=== PATIENT | female | born 1950 | race African-American/Black ===

== ENCOUNTER 2018-05-02 19:13 | Inpatient (IN) | payer MEDICARE, MEDICAID ==
[~2018-05-02] VITALS: Ht 165.1 cm; Wt 64.4 kg
[~2018-05-02 19:13] MED LIST: AMLO10TA4 PO; ASPI-1159 PO; ATOR20TA65 PO; CALC-700 PO; CARV6.2548 PO; Folic Acid PO; GABA800T97 PO; HYDR-519 PO; L25 PO; LOSA100T14 PO; METH-612 PO; METO-396 PO; Multivitamins,Ther W-Minerals PO; NITR0.4T49 SL; TIOT18CA3 IH; TRAM50TA PO; Thiamine Hcl PO
[2018-05-02] MEDS ORDERED: ALBUTEROL (0.083%) 2.5MG/3ML NEB HHN STA (20:41)
[2018-05-02] MEDS ORDERED: METHYLPREDNISOLONE SOD SUCC 125 MG/2 ML VIAL IV STA (20:41)
[2018-05-02] MEDS ORDERED: IPRATROPIUM BROMIDE (0.02%) 0.5MG/2.5ML NEB HHN STA (20:41)
[2018-05-02 22:39] LABS: BASOPHILS % 0.4 % (0.0-2.0); EOSINOPHILS % 0.1 % (0.0-5.0); LYMPHOCYTES % 20.1 % (20.0-50.0); MEAN CORPUSCULAR HEMOGLOBIN 31.5 pg (28.0-32.0); MEAN CORPUSCULAR VOLUME 97.4 fL (81.0-99.0); MEAN PLATELET VOLUME 9.2 fl (7.4-10.4); MONOCYTES % 5.5 % (2.0-8.0); NEUTROPHILS % 73.9 % (40.0-76.0); PLATELET 179 x1000/uL (130-400); RED BLOOD CELL COUNT 3.19 mill/uL (4.2-5.4); RED CELL DISTRIBUTION WIDTH 17.6 % (11.6-14.6)
[2018-05-02 22:44] LABS: CHLORIDE 108 mEq/L (98-107)
[2018-05-02 22:48] LABS: ETHANOL BLOOD 159 mg/dL
[2018-05-02 22:50] LABS: D-DIMER 2.4 mg/L FEU (<0.50)
[2018-05-02] MEDS ORDERED: NITROGLYCERIN OINT 1GM/INCH UDPKT TD ONE (23:30)
[2018-05-02] MEDS ORDERED: FUROSEMIDE 40MG/4ML VIAL IV ONE (23:30)
[2018-05-03 01:01] LABS: *AMPHETAMINES SCREEN URINE NEGATIVE (NEGATIVE); *BARBITURATES SCREEN URINE NEGATIVE (NEGATIVE); *BENZODIAZEPINES SCREEN URINE NEGATIVE (NEGATIVE); *COCAINE SCREEN URINE NEGATIVE (NEGATIVE); CANNABINOID URINE SCREEN NEGATIVE (NEGATIVE); METHADONE URINE SCREEN NEGATIVE (NEGATIVE); OPIATES URINE SCREEN NEGATIVE (NEGATIVE); PHENCYCLIDINE URINE SCREEN NEGATIVE (NEGATIVE)
[2018-05-03] MEDS ORDERED: IOHEXOL-350 100 ML BOTTLE ONE (01:47)
[2018-05-03] MEDS ORDERED: CLONIDINE 0.1MG TABLET PO PRN (08:00)
[2018-05-03] MEDS ORDERED: FOLIC ACID 1 MG, THIAMINE HCL 100 MG, MVI, ADULT NO.1 10 ML in DEXTROSE 5% WATER 1,000 ML IV ONE ×4 (08:00)
[2018-05-03] MEDS ORDERED: ONDANSETRON HCL 4MG/2ML INJ IV PRN (08:00)
[2018-05-03 08:07] LABS: HEMATOCRIT 34.2 % (36.0-48.0); HEMOGLOBIN 11.3 g/dL (12.0-16.0)
[2018-05-03] MEDS ORDERED: FOLIC ACID 1 MG,THIAMINE HCL 100 MG,MVI, ADULT NO.1 10 ML in DEXTROSE 5% IV ONE ×4 (09:00)
[2018-05-03] MEDS ORDERED: LOSARTAN POTASSIUM 50 MG TABLET PO SCH (09:00)
[2018-05-03] MEDS: AMLODIPINE 5MG TABLET PO SCH ×2 (09:32→21:31)
[2018-05-03] MEDS: METHYLPREDNISOLONE SOD SUCC 40 MG/ML VIAL IV SCH ×2 (09:32→17:25)
[2018-05-03] MEDS ORDERED: LORAZEPAM 2MG/ML CPJ IV PRN (14:45)
[2018-05-03] MEDS ORDERED: IPRATROPIUM/ALBUTEROL 0.5-3(2.5)MG/3ML NEB HHN PRN (14:45)
[2018-05-03] MEDS ORDERED: HYDRALAZINE HCL 50MG TABLET PO NR (21:18)
[2018-05-03 21:35] VITALS: BP 159/79
[2018-05-03 22:00] VITALS: BP 153/79
[2018-05-03] MEDS ORDERED: HYDRALAZINE HCL 50MG TABLET PO SCH (22:00)
[2018-05-03] MEDS: NICOTINE 14MG PATCH TD SCH (23:21)
[2018-05-04] VITALS: BP 136/77
[2018-05-04] MEDS ORDERED: FOLI-43 PO ×2 (00:07)
[2018-05-04] MEDS ORDERED: THIA100T13 PO ×2 (00:07)
[2018-05-04] MEDS ORDERED: [UNRECOGNIZED DRUG - CODE] PO (00:10)
[2018-05-04] MEDS: BUDESONIDE 0.5MG/2ML NEB HHN SCH ×3 (00:42→21:21)
[2018-05-04] MEDS: IPRATROPIUM/ALBUTEROL 0.5-3(2.5)MG/3ML NEB HHN SCH ×8 (00:42→21:25)
[2018-05-04] MEDS: METHYLPREDNISOLONE SOD SUCC 40 MG/ML VIAL IV SCH ×3 (03:10→21:51)
[2018-05-04 04:00] VITALS: BP 113/76
[2018-05-04 06:26] LABS: HEMATOCRIT. 33.3 % (36.0-48.0); HEMOGLOBIN. 10.9 g/dL (12.0-16.0); MEAN CORPUSCULAR HEMOGLOBIN 31.4 pg (28.0-32.0); MEAN CORPUSCULAR VOLUME 95.7 fL (81.0-99.0); MEAN PLATELET VOLUME 9.9 fl (7.4-10.4); PLATELET 220 x1000/uL (130-400); RED BLOOD CELL COUNT 3.47 mill/uL (4.2-5.4); RED CELL DISTRIBUTION WIDTH 17.8 % (11.6-14.6)
[2018-05-04 07:22] LABS: CHLORIDE 97 mEq/L (98-107)
[2018-05-04 08:00] VITALS: BP 140/73
[2018-05-04] MEDS: PANTOPRAZOLE SODIUM 40 MG/VIAL IV SCH ×2 (09:50→21:51)
[2018-05-04] MEDS: MULTIVITAMINS,THER W-MINERALS TABLET PO SCH (09:51)
[2018-05-04] MEDS: THIAMINE HCL 100MG TABLET PO SCH (09:51)
[2018-05-04] MEDS: NICOTINE 14MG PATCH TD SCH (09:51)
[2018-05-04] MEDS: FOLIC ACID 1MG TABLET PO SCH (09:52)
[2018-05-04] MEDS: AMLODIPINE 5MG TABLET PO SCH ×2 (09:52→21:50)
[2018-05-04] MEDS: HYDRALAZINE HCL 50MG TABLET PO SCH ×2 (09:53→21:55)
[2018-05-04] MEDS: ACETAMINOPHEN 325MG TABLET PO PRN (09:54)
[2018-05-04] MEDS: LOSARTAN POTASSIUM 50 MG TABLET PO SCH ×2 (09:55→21:51)
[2018-05-04 12:00] VITALS: BP 124/66
[2018-05-04 12:17] LABS: PLATELET ESTIMATE NORMAL
[2018-05-04] MEDS ORDERED: POTASSIUM CHLORIDE 20MEQ TABLET SR PO SCH (12:45)
[2018-05-04 16:00] VITALS: BP 130/70
[2018-05-04 20:00] VITALS: BP 140/65
[2018-05-04] MEDS: GUAIFENESIN 600MG ER TABLET PO SCH (21:51)
[2018-05-05] VITALS (7 sets, daily range): BP systolic 118–150; BP diastolic 56–78
[2018-05-05] MEDS: IPRATROPIUM/ALBUTEROL 0.5-3(2.5)MG/3ML NEB HHN SCH ×5 (05:16→21:19)
[2018-05-05] MEDS: ACETAMINOPHEN 325MG TABLET PO PRN (06:31)
[2018-05-05 06:59] LABS: CHLORIDE 100 mEq/L (98-107)
[2018-05-05 07:38] LABS: BASOPHILS % 0.2 % (0.0-2.0); HEMATOCRIT. 33.8 % (36.0-48.0); HEMOGLOBIN. 10.9 g/dL (12.0-16.0); LYMPHOCYTES % 7.4 % (20.0-50.0); MEAN CORPUSCULAR HEMOGLOBIN 31.1 pg (28.0-32.0); MEAN CORPUSCULAR VOLUME 96.3 fL (81.0-99.0); MONOCYTES % 4.1 % (2.0-8.0); NEUTROPHILS % 88.3 % (40.0-76.0); PLATELET 238 x1000/uL (130-400); RED BLOOD CELL COUNT 3.52 mill/uL (4.2-5.4); RED CELL DISTRIBUTION WIDTH 17.8 % (11.6-14.6)
[2018-05-05] MEDS: IPRATROPIUM BROMIDE (0.02%) 0.5MG/2.5ML NEB HHN SCH (08:00)
[2018-05-05] MEDS ORDERED: POTASSIUM CHLORIDE 20MEQ TABLET SR PO NR (08:30)
[2018-05-05] MEDS ORDERED: DOCUSATE SODIUM 100MG CAPSULE PO SCH (09:00)
[2018-05-05] MEDS: LOSARTAN POTASSIUM 50 MG TABLET PO SCH ×2 (09:05→20:55)
[2018-05-05] MEDS: MULTIVITAMINS,THER W-MINERALS TABLET PO SCH (09:05)
[2018-05-05] MEDS: PANTOPRAZOLE SODIUM 40 MG/VIAL IV SCH ×2 (09:05→20:54)
[2018-05-05] MEDS: AMLODIPINE 5MG TABLET PO SCH ×2 (09:05→20:55)
[2018-05-05] MEDS: GUAIFENESIN 600MG ER TABLET PO SCH ×2 (09:05→20:55)
[2018-05-05] MEDS: HYDRALAZINE HCL 50MG TABLET PO SCH ×2 (09:06→20:55)
[2018-05-05] MEDS: NICOTINE 14MG PATCH TD SCH (09:07)
[2018-05-05] MEDS: FERROUS SULFATE 325MG TABLET PO SCH ×3 (09:07→18:48)
[2018-05-05] MEDS: METHYLPREDNISOLONE SOD SUCC 40 MG/ML VIAL IV SCH ×2 (09:07→20:54)
[2018-05-05] MEDS: FOLIC ACID 1MG TABLET PO SCH (09:07)
[2018-05-05] MEDS: BUDESONIDE 0.5MG/2ML NEB HHN SCH ×2 (09:10→21:20)
[2018-05-05] MEDS: THIAMINE HCL 100MG TABLET PO SCH (09:39)
[2018-05-06] VITALS (9 sets, daily range): BP systolic 110–135; BP diastolic 64–83
[2018-05-06] MEDS: IPRATROPIUM/ALBUTEROL 0.5-3(2.5)MG/3ML NEB HHN SCH ×3 (01:23→07:44)
[2018-05-06 07:33] LABS: CHLORIDE 105 mEq/L (98-107)
[2018-05-06 07:37] LABS: HEMOGLOBIN. 10.7 g/dL (12.0-16.0); MEAN CORPUSCULAR HEMOGLOBIN 30.4 pg (28.0-32.0); MEAN CORPUSCULAR VOLUME 97.1 fL (81.0-99.0); MEAN PLATELET VOLUME 9.5 fl (7.4-10.4); PLATELET 232 x1000/uL (130-400); RED BLOOD CELL COUNT 3.51 mill/uL (4.2-5.4); RED CELL DISTRIBUTION WIDTH 17.9 % (11.6-14.6)
[2018-05-06 09:06] LABS: SACCHAROMYCES CEREVISIAE IGM <20.0 Units (0.0-24.9)
[2018-05-06] MEDS: THIAMINE HCL 100MG TABLET PO SCH (09:12)
[2018-05-06] MEDS: HYDRALAZINE HCL 50MG TABLET PO SCH (09:12)
[2018-05-06] MEDS: ACETAMINOPHEN 325MG TABLET PO PRN (09:12)
[2018-05-06] MEDS: FERROUS SULFATE 325MG TABLET PO SCH ×2 (09:13→13:38)
[2018-05-06] MEDS: LOSARTAN POTASSIUM 50 MG TABLET PO SCH (09:13)
[2018-05-06] MEDS: MULTIVITAMINS,THER W-MINERALS TABLET PO SCH (09:13)
[2018-05-06] MEDS: FOLIC ACID 1MG TABLET PO SCH (09:13)
[2018-05-06] MEDS: GUAIFENESIN 600MG ER TABLET PO SCH (09:13)
[2018-05-06] MEDS: NICOTINE 14MG PATCH TD SCH (09:14)
[2018-05-06] MEDS: PANTOPRAZOLE SODIUM 40 MG/VIAL IV SCH (09:14)
[2018-05-06] MEDS: AMLODIPINE 5MG TABLET PO SCH (09:14)
[2018-05-06] MEDS: METHYLPREDNISOLONE SOD SUCC 40 MG/ML VIAL IV SCH (09:14)
[2018-05-06] MEDS ORDERED: POTASSIUM CHLORIDE 20MEQ TABLET SR PO SCH (10:00)
[2018-05-06] MEDS ORDERED: LEVOFLOXACIN 500MG TABLET PO SCH (10:30)
[2018-05-06] MEDS ORDERED: LIDOCAINE HCL 1% 20ML VIAL (Pyxis) INJ ONE (11:23)
[2018-05-06] MEDS ORDERED: SODIUM BICARBONATE 4% (2.4MEQ) 5ML VIAL IV ONE (11:23)
[2018-05-06] MEDS: IPRATROPIUM BROMIDE (0.02%) 0.5MG/2.5ML NEB HHN SCH (11:31)
[2018-05-06] MEDS: BUDESONIDE 0.5MG/2ML NEB HHN SCH (11:31)
[2018-05-06] MEDS ORDERED: METRONIDAZOLE 500 MG PREMIX 100 ML IV SCH (12:00)
[2018-05-06 12:31] LABS: HEPATITIS B SURFACE ANTIGEN NEGATIVE
[2018-05-06] MEDS ORDERED: FENTANYL CITRATE/PF 50MCG/ML 2ML VIAL ONE (12:32)
[2018-05-06 13:00] LABS: HEPATITIS A AB IGM NEGATIVE (NEGATIVE)
[2018-05-06 13:48] LABS: PLATELET ESTIMATE NORMAL
[2018-05-06] MEDS ORDERED: CHLORDIAZEPOXIDE 5 MG CAPSULE PO SCH (14:00)
[2018-05-06 15:06] LABS: ATYPICAL pANCA <1:20 titer (Neg:<1:20)
[2018-05-06] MEDS ORDERED: PREDNISONE 20MG TABLET PO SCH (18:10)
[2018-05-07 08:14] LABS: HIV SCREEN 4G Non Reactive (Non Reactive)
[2018-05-07 09:06] LABS: SACCHAROMYCES CEREVISIAE IGG <20.0 Units (0.0-24.9)
== END 2018-05-06 19:22 | disposition home or self-care (01) | DRG 871 ==
LOC: ER 19:13 → 7WST 05-03 00:40 → ENRESERV 05-03 20:41
PROVIDERS: ADMIT Internal Medicine; ATTEND Internal Medicine
DX: A41.9 Sepsis, unspecified organism (principal); J96.00 Acute respiratory failure, unspecified whether with hypoxia or hypercapnia; J18.9 Pneumonia, unspecified organism; E44.1 Mild protein-calorie malnutrition; E87.0 Hyperosmolality and hypernatremia; I50.32 Chronic diastolic (congestive) heart failure; J44.1 Chronic obstructive pulmonary disease with (acute) exacerbation; J44.0 Chronic obstructive pulmonary disease with (acute) lower respiratory infection; E11.9 Type 2 diabetes mellitus without complications; D12.5 Benign neoplasm of sigmoid colon; D64.9 Anemia, unspecified; E27.9 Disorder of adrenal gland, unspecified; E87.8 Other disorders of electrolyte and fluid balance, not elsewhere classified; I27.20 Pulmonary hypertension, unspecified; K52.9 Noninfective gastroenteritis and colitis, unspecified; K57.30 Diverticulosis of large intestine without perforation or abscess without bleeding; K76.0 Fatty (change of) liver, not elsewhere classified; M19.90 Unspecified osteoarthritis, unspecified site; Y90.6 Blood alcohol level of 120-199 mg/100 ml; Z99.81 Dependence on supplemental oxygen; F17.210 Nicotine dependence, cigarettes, uncomplicated; F32.9 Major depressive disorder, single episode, unspecified; I11.0 Hypertensive heart disease with heart failure; K70.9 Alcoholic liver disease, unspecified; R29.6 Repeated falls; F10.10 Alcohol abuse, uncomplicated; K29.20 Alcoholic gastritis without bleeding; Z79.01 Long term (current) use of anticoagulants; Z86.010 Personal history of colon polyps; Z86.711 Personal history of pulmonary embolism; Z90.710 Acquired absence of both cervix and uterus; Z88.0 Allergy status to penicillin; Z71.6 Tobacco abuse counseling; Z68.23 Body mass index [BMI] 23.0-23.9, adult
CPT/HCPCS: 32405; 36415; 71045; 71275; 76700; 77012; 80048; 80076; 80305; 80320; 82270; 82728; 82977; 83540; 83550; 83735; 83880; 84145; 84484; 85014; 85018; 85379; 86256; 86671; 86705; 86709; 86803; 86850; 86900; 87015; 87045; 87340; 87389; 87427; 87449; 87493; 93005; 93970; 96365; 96366; 96375; 97163; 99284; 99285; C9113; J1940; J2060; J2920; J2930; J3010; J3411; J3490; J7050; J7070; J7611; J7620; J7626; Q9967; G0480